=== PATIENT | male | born 1950 | race African-American/Black ===

== ENCOUNTER 2017-06-26 07:03 | Day surgery (SDC) | payer MEDICARE, BC ==
[~2017-06-26] VITALS: Ht 177.8 cm; Wt 90.7 kg
[~2017-06-26 07:03] MED LIST: AMLO10TA80 PO; ASCO-316 PO; ASPI-1159 PO; BRIM10DR2 BOTHEYE; CHON250C PO; FISH PO; MV-M1TAB37 PO; TRAV2.5D BOTHEYE; TRU10 BOTHEYE
[2017-06-26] MEDS ORDERED: LACTATED RINGERS 1,000 ML IV SCH (08:15)
[2017-06-26 08:18] LABS: PARTIAL THROMBOPLASTIN TIME 24.2 sec (23.4-31.0); PROTHROMBIN TIME 10.6 sec (9.4-11.6)
[2017-06-26] MEDS ORDERED: SKIN ADHESIVE 0.7 GM EA TOP ONE (08:24)
[2017-06-26] MEDS ORDERED: BUPIVACAINE HCL 0.5% (5MG/ML) 50ML ONE (08:25)
[2017-06-26] MEDS ORDERED: FENTANYL CITRATE/PF 50MCG/ML 2ML VIAL IV PRN (11:30)
[2017-06-26 12:02] VITALS: BP 175/92
== END 2017-06-26 14:00 | disposition home or self-care (01) ==
LOC: OR 07:03
PROVIDERS: ATTEND Surgery
DX: K43.9 Ventral hernia without obstruction or gangrene (principal); I10 Essential (primary) hypertension; H40.89 Other specified glaucoma; M19.90 Unspecified osteoarthritis, unspecified site; K21.9 Gastro-esophageal reflux disease without esophagitis; E66.3 Overweight; Z79.82 Long term (current) use of aspirin; Z85.46 Personal history of malignant neoplasm of prostate; Z79.899 Other long term (current) drug therapy; Z98.890 Other specified postprocedural states; Z88.1 Allergy status to other antibiotic agents
CPT/HCPCS: 36415; 49652; 85610; 85730; C1781; G0168; J3010; J3490; J7120